=== PATIENT | female | born 1950 | race Caucasian/White ===

== ENCOUNTER → 2016-11-26 | Outpatient (CLI) | payer OTHER ==
[~2016-11-26] MED LIST: ATOR-24 PO; CLR10 PO; LEVO75TA5 PO; METO25TA3 PO; MULT-506 PO; NXM/40 PO; OMEG10007 PO
--- NOTE | 2016-11-26 13:53 | MAMMOGRAPHY REPORT ---
BILATERAL DIGITAL SCREENING MAMMOGRAM WITH CAD: 11/26/2016 CLINICAL HISTORY: Routine screening. Patient has no complaints. TECHNIQUE: Bilateral CC and MLO views were obtained. Current study was also evaluated with a Compute r Aided Detection (CAD) system. COMPARISON: Comparison is made to exams dated: 11/21/2014 mammogram, 11/17/2013 mammogram, 11/11/2012 tana mogram, 11/07/2011 mammogram, 11/01/2010 mammogram, and 10/30/2009 mammogram - [facility]. BREAST COMPOSITION: There are scattered areas of fibroglandular density in both breasts. FINDINGS: There is a 10 mm lobulated mass in the lower outer posterior right breast, for which addit ional spot compression tomosynthesis views and targeted ultrasound are recommended. A 7 mm nodular a symmetry in the lateral, middle one third of the left breast, best seen on the CC view is increasingl y conspicuous compared to prior exams. Additional spot compression tomosynthesis views and possibly ultrasound are recommended. No other suspicious mass, architectural distortion or cluster of microcalcifications is seen bilatera lly. IMPRESSION: ACR BI-RADS CATEGORY 0: INCOMPLETE EVALUATION: NEED ADDITIONAL IMAGING EVALUATION The 10 mm lobulated mass in the lower outer posterior right breast and 7 mm nodular asymmetry in the lateral left breast need additional imaging evaluation. The patient will be called to schedule an appointment. Approximately 10% of breast cancers are not detected with mammography. A negative mammographic report should not delay biopsy if a clinically suggestive mass is present. Shaina Gomes M.D. ay/:11/26/2016 08:08:52 Tripper: Zaynab MAGAÑA(Luther)([place]), [facility] letter sent: Addl Imaging 0 BI-RADS Code: ACR BI-RADS Category 0: Incomplete Evaluation: Need Additional Imaging Evaluation
== END | disposition home or self-care (01) ==
LOC: C.MAMM 07:25
PROVIDERS: ATTEND Obstetrics & Gynecology
DX: Z12.31 Encounter for screening mammogram for malignant neoplasm of breast (principal)

== ENCOUNTER → 2016-12-09 | Outpatient (CLI) | payer OTHER ==
--- NOTE | 2016-12-09 14:31 | MAMMOGRAPHY REPORT ---
BILATERAL DIGITAL DIAGNOSTIC MAMMOGRAM TOMOSYNTHESIS AND TARGETED BILATERAL ULTRASOUND: 12/09/2016 CLINICAL HISTORY: Callback from screening mammogram for right breast mass and left breast asymmetry. TECHNIQUE: Breast tomosynthesis in addition to standard 2D mammography was performed. Spot compress ion bilateral CC and MLO views were obtained. COMPARISON: Comparison is made to exams dated: 11/26/2016 mammogram, 11/23/2015 mammogram, 11/21/2014 tana mogram, 11/17/2013 mammogram, 11/11/2012 mammogram, and 11/07/2011 mammogram - [facility]. BREAST COMPOSITION: There are scattered areas of fibroglandular density in both breasts. FINDINGS: Spot compression views demonstrate a persistent lobulated circumscribed 10 mm mass within the right slightly lateral breast at approximately 8 to 9:00 posteriorly. Spot compression views of the left breast demonstrate partial effacement of the asymmetry in the left lateral breast. The asym metry appears similar to multiple prior exams including the 2010 and 2009 exams, and has the appearan ce of normal fibroglandular tissue on the tomosynthesis images without a suspicious mass or tableau architect ural distortion noted. Targeted ultrasound was performed of the left lateral breast in the region of the mammographic asymme try, which shows sonographically normal tissue without evidence of a mass or other suspicious sonogra phic abnormality. Targeted ultrasound was performed of the right slightly lateral breast at approxim ately 8 to 9:00 in the region of the mammographic mass. No suspicious solid masses were evident. A lobulated circumscribed nechoic mass with multiple thin internal septations measuring 7 x 5 x 3 mm is seen within the right breast at 8:00, 3 cm from the nipple, which likely corresponds with the mammog raphic mass. Benign duct ectasia was also noted in the right 9:00 periareolar breast. IMPRESSION: ACR BI-RADS CATEGORY 2: BENIGN, TARGETED ULTRASOUND ACR BI-RADS CATEGORY 2: BENIGN 1. Left lateral breast asymmetry effaces to a baseline appearance on the additional views, without co rresponding sonographic abnormality evident. Findings are benign and compatible with normal fibrogla ndular tissue. 2. Benign 7 mm cyst cluster in the right 8:00 breast on ultrasound, which is felt to correspond with the mammographic mass. There is no mammographic or targeted sonographic evidence of malignancy. A 1 year screening mammogram is recommended. The patient has been verbally notified of the results. Approximately 10% of breast cancers are not detected with mammography. A negative mammographic report should not delay biopsy if a clinically suggestive mass is present. Mariya Barrientos M.D. ah/:12/09/2016 10:27:24 Assistant Superintendent: Kaitlynn Bartlett, [facility] letter sent: Normal 1/2 BI-RADS Code: ACR BI-RADS Category 2: Benign Ultrasound BI-RADS: ACR BI-RADS Category 2: Benign
== END | disposition home or self-care (01) ==
LOC: C.MAMM 09:48
PROVIDERS: ATTEND Obstetrics & Gynecology
DX: N63 Unspecified lump in breast (principal); N64.89 Other specified disorders of breast

== ENCOUNTER → 2017-01-03 | Outpatient (CLI) | payer OTHER | END | disposition home or self-care (01) | LOC: C.LAB1850 07:07 | PROVIDERS: ATTEND Family Medicine | DX: E03.9 Hypothyroidism, unspecified (principal) ==

== ENCOUNTER → 2017-02-18 | Outpatient (CLI) | payer OTHER ==
[2017-02-18 09:33] LABS: BASO % 0.7 %; BASO ABS # 0.04 K/uL (0-0.2); COMPLETE YES; EOS % 3.7 %; HEMATOCRIT 39.9 % (37-47); IG% 0.4 %; LYMPH % 30.7 %; LYMPH ABS # 1.67 K/uL (1.2-3.4); MEAN CELL VOLUME 88.7 fL (80-100); MEAN CORPUSCULAR HEMOGLOBIN 30.4 pg (25-34); MEAN CORPUSCULAR HGB CONC 34.3 g/dl (32-36); MEAN PLATELET VOLUME 9.4 fL (7.4-10.4); MONO % 11.4 %; NEUT % 53.1 %; PLATELET COUNT 273 K/uL (130-400); WHITE BLOOD COUNT 5.44 K/uL (4.8-10.8)
[2017-02-18 09:53] LABS: ALT/SGPT 28 U/L (12-78); BLOOD UREA NITROGEN 15 mg/dl (7-18); BUN/CREATININE RATIO 22.1 (10-20); CALCIUM 9.2 mg/dl (8.5-10.1); CARBON DIOXIDE 26 mmol/L (21-32); CHLORIDE 106 mmol/L (98-107); CREATININE 0.68 mg/dl (0.60-1.20); GLUCOSE 97 mg/dl (70-99); POTASSIUM 4.1 mmol/L (3.5-5.1); SODIUM 141 mmol/L (136-145)
[2017-02-18 10:06] LABS: ALB/GLOB RATIO 1.1 (0.9-2); ALKALINE PHOSPHATASE 79 U/L (45-117); AST/SGOT 19 U/L (15-37); IMMUNOGLOBULN M 70.6 mg/dL (40-230)
[2017-02-19 18:53] LABS: ALBUMIN 4.2 G/DL (3.8-4.8); FREE KAPPA 14.6 MG/L (3.3-19.4); FREE KAPPA/LAMBDA RATIO 0.59 (0.26-1.65); FREE LAMBDA 24.8 MG/L (5.7-26.3); MONOCLONAL PROTEIN BAND 1 0.5 G/DL (NOT DETECTED); TOTAL PROTEIN 6.9 G/DL (6.2-8.3)
== END | disposition home or self-care (01) ==
LOC: C.LAB1850 07:10
PROVIDERS: ATTEND Nurse Practitioner Family
DX: D47.2 Monoclonal gammopathy (principal)

== ENCOUNTER → 2017-05-21 | Outpatient (CLI) | payer OTHER ==
--- NOTE | 2017-05-21 11:02 | DIAGNOSTIC IMAGING REPORT ---
RIGHT KNEE 4 VIEWS INCLUDING BILATERAL STANDING AP VIEWS CLINICAL HISTORY: RIGHT KNEE PAIN COMPARISON: None DISCUSSION: The joint spaces appear symmetric. No acute fractures are visualized. There are no erosive or destructive changes. Minimal degenerative changes are suspected within the patellofemoral joint. There is no radiographic evidence of significant joint effusion. IMPRESSION: 1. No acute fractures 2. Minor degenerative change Electronically signed by: Jason Dowd M.D. 05/21/2017 11:01 AM Dictated Date/Time: 05/21/2017 11:00 AM
== END | disposition home or self-care (01) ==
LOC: C.RDSM 10:31
PROVIDERS: ATTEND Family Medicine
DX: M25.561 Pain in right knee (principal); M89.8X6 Other specified disorders of bone, lower leg

== ENCOUNTER → 2017-08-21 | Outpatient (CLI) | payer OTHER ==
[~2017-08-21] MED LIST changes: -METO25TA3 PO; +METO25TA4 PO
[2017-08-21 09:34] LABS: BASO ABS # 0.04 K/uL (0-0.2); EOS % 2.7 %; EOS ABS # 0.11 K/uL (0-0.5); HEMATOCRIT 39.7 % (37-47); HEMOGLOBIN 13.8 g/dL (12.0-16.0); LYMPH % 33.3 %; LYMPH ABS # 1.35 K/uL (1.2-3.4); MEAN CELL VOLUME 89.2 fL (80-100); MEAN CORPUSCULAR HGB CONC 34.8 g/dl (32-36); MEAN PLATELET VOLUME 9.6 fL (7.4-10.4); MONO % 11.4 %; MONO ABS # 0.46 K/uL (0.11-0.59); NEUT % 51.6 %; NEUT ABS # 2.09 K/uL (1.4-6.5); PLATELET COUNT 238 K/uL (130-400); RED CELL DISTRIBUTION WIDTH CV 13.1 % (11.5-14.5); RED CELL DISTRIBUTION WIDTH SD 42.8 fL (36.4-46.3); WHITE BLOOD COUNT 4.05 K/uL (4.8-10.8)
[2017-08-21 10:06] LABS: ALBUMIN 3.9 gm/dl (3.4-5.0); ALT/SGPT 31 U/L (12-78); AST/SGOT 19 U/L (15-37); BLOOD UREA NITROGEN 15 mg/dl (7-18); CALCIUM 9.3 mg/dl (8.5-10.1); CARBON DIOXIDE 27 mmol/L (21-32); CREATININE 0.65 mg/dl (0.60-1.20); GLUCOSE 95 mg/dl (70-99); SODIUM 140 mmol/L (136-145)
[2017-08-21 10:19] LABS: ALKALINE PHOSPHATASE 71 U/L (45-117); TOTAL PROTEIN 7.2 gm/dl (6.4-8.2)
== END | disposition home or self-care (01) ==
LOC: C.LAB1850 07:11
PROVIDERS: ATTEND Nurse Practitioner Family
DX: D47.2 Monoclonal gammopathy (principal)

== ENCOUNTER → 2017-12-23 | Outpatient (CLI) | payer OTHER ==
[2017-12-23 10:13] LABS: HEMOGLOBIN A1C 5.7 % (4.5-5.6)
[2017-12-23 10:15] LABS: BLOOD UREA NITROGEN 15 mg/dl (7-18); CALCIUM 8.9 mg/dl (8.5-10.1); CARBON DIOXIDE 28 mmol/L (21-32); CHOLESTEROL 157 mg/dl (0-200); CREATININE 0.71 mg/dl (0.60-1.20); GLUCOSE 89 mg/dl (70-99); LDL CHOLESTEROL CALCULATED 83 mg/dl; POTASSIUM 3.9 mmol/L (3.5-5.1); SODIUM 139 mmol/L (136-145)
== END | disposition home or self-care (01) ==
LOC: C.LAB1850 07:01
PROVIDERS: ATTEND Family Medicine
DX: E03.9 Hypothyroidism, unspecified (principal); I10 Essential (primary) hypertension; E78.5 Hyperlipidemia, unspecified